=== PATIENT | female | born 1965 | race Two or more races ===

== ENCOUNTER 2023-11-08 05:20 | Emergency (ER) | payer BC, OTHER ==
[~2023-11-08] VITALS: Ht 154.9 cm; Wt 73.2 kg
[2023-11-08 06:11] LABS: Urine Bacteria None Seen /hpf (None Seen)
[2023-11-08 06:44] LABS: Urine Blood 1+ /uL (Negative); Urine Clarity Clear (Clear); Urine Color Yellow (Yellow); Urine Mucus FEW (None Seen); Urine Protein, UAD TRACE (Negative); Urine Specific Gravity 1.031 (1.001-1.035); Urine Urobilinogen Normal (Negative); Urine WBC 2 /hpf (0 - 5)
[2023-11-08 06:49] LABS: Basophils # (auto) 0 10 ^3/uL (0-0.2); Basophils % (auto) 0.1 % (0.0-2.0); Eosinophils # (auto) 0 10 ^3/uL (0-0.8); Eosinophils % (auto) 0.1 % (0.0-7.0); Hematocrit 45.6 % (36.0-46.0); Hemoglobin 15.3 g/dL (12.2-16.2); Lymphocytes # (auto) 0.6 10 ^3/uL (0.4-5.4); Lymphocytes % (auto) 5.7 % (10.0-50.0); Mean Corpuscular Hemoglobin 31.5 pg (28.0-32.0); Mean Corpuscular Hgb Conc. 33.5 g/dL (32.0-36.0); Mean Corpuscular Volume 94.1 fL (80.0-100.0); Monocytes # (auto) 0.3 10 ^3/uL (0-1.3); Monocytes % (auto) 2.8 % (0.0-12.0); Neutrophils # (auto) 9.3 10 ^3/uL (1.6-8.6); Neutrophils % (auto) 91.3 % (37.0-80.0); Red Blood Cells 4.84 10^6/uL (4.0-5.20); Red Cell Distribution Width 13.7 % (11.8-14.3); White Blood Cell 10.2 10^3/uL (4.4-10.8)
[2023-11-08] MEDS: METOCLOPRAMIDE HCL 5MG/ml INJ 2ml VIAL IV ONE (07:00)
[2023-11-08] MEDS: DONNATAL 5ml ORAL Elix (BELLADONNA ALK-PHENOBARB) PO ONE (07:00)
[2023-11-08 07:13] LABS: Alanine Aminotransferase 20 U/L (7-40); Albumin 4.8 g/dL (3.2-4.8); Alkaline Phosphatase 120 U/L (46-116); Anion Gap 8 (5-15); Aspartate Aminotransferase 23 U/L (13-40); Calcium 10.2 mg/dL (8.7-10.4); Carbon Dioxide 23 mmol/L (20-30); Chloride 105 mmol/L (98-107); Glucose 156 mg/dL (74-106); Lipase 44 U/L (12-53); Potassium 4.1 mmol/L (3.5-5.1); Sodium 136 mmol/L (136-145)
[2023-11-08 07:14] LABS: Bilirubin, Total 0.7 mg/dL (0.2-1.0)
[2023-11-08 07:25] LABS: BUN/Creatinine Ratio 14.1 (10.0-20.0); Blood Urea Nitrogen 12 mg/dL (9-23)
[2023-11-08] MEDS: PANTOPRAZOLE 40 MG TAB PO ONE (08:33)
[2023-11-08] MEDS: MAALOX PLUS or MAALOX 30 ML PO ONE (08:33)
[2023-11-08] MEDS: SODIUM CHLORIDE 0.9% 1,000 ML IVB ONE (08:38)
[2023-11-08 08:41] VITALS: TEMP 98
[2023-11-08 10:14] VITALS: BP 111/71; PULSE 83; RESP 18; O2SAT 98
[2023-11-08] MEDS ORDERED: BISM262C44 PO (10:36)
[2023-11-08] MEDS ORDERED: METO-281 PO (10:36)
== END 2023-11-08 10:46 | disposition home or self-care (01) ==
LOC: ER 05:20
DX: A05.9 Bacterial foodborne intoxication, unspecified (principal); I10 Essential (primary) hypertension; R73.9 Hyperglycemia, unspecified
CPT/HCPCS: 36415; 80053; 81001; 83690; 83735; 85025; 96361; 96374; 99284; J2765; J7030